=== PATIENT | male | born 1980 | race Caucasian/White ===

== ENCOUNTER 2022-02-24 21:30 | Emergency (ER) | payer MEDICARE, MEDICAID, SELFPAY ==
--- NOTE | 2022-02-24 21:38 | ECG_ITS ---
Test Reason : overdose Blood Pressure : / mmHG Vent. Rate : 085 BPM Atrial Rate : 085 BPM P-R Int : 164 ms QRS Dur : 086 ms QT Int : 370 ms P-R-T Axes : 078 064 065 degrees QTc Int : 440 ms Normal sinus rhythm with sinus arrhythmia Normal ECG No previous ECGs available Referred By: Mikayla Grimes Electronically Signed By:LARRY SEGOVIA
[2022-02-24 21:43] VITALS: BP 132/92; PULSE 105; RESP 16; TEMP 36.8; O2SAT 95; BMI 28.5
[2022-02-24] MEDS: Activated charcoaL 50 GM/240 ML ORAL.SUSP PO (22:05)
[2022-02-24] MEDS: 0.9 % Sodium Chloride 1,000 ML 999 ML IVCONT (22:05)
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
[2022-02-24 22:17] LABS: Ammonia 31 umol/L (13-55)
[2022-02-24 22:20] LABS: Lactic Acid 1.8 mmol/L (0.5-2.0)
[2022-02-24 22:27] LABS: Alanine Aminotransferase 28 U/L (0-40); Albumin Level 4.7 g/dL (3.5-5.0); Alkaline Phosphatase 57 U/L (39-117); Anion Gap 17 (12-20); Aspartate Amino Transferase 24 U/L (5-37); Bilirubin Direct 0.2 mg/dL (0.0-0.5); Bilirubin Total 0.4 mg/dL (0.0-1.0); Blood Urea Nitrogen 14 mg/dL (9-16); Calcium 9.5 mg/dL (8.4-10.2); Carbon Dioxide 21 mmol/L (22-29); Chloride 108 mmol/L (96-108); Creatinine Clr Calc Pharmacy 118.1; Estimated Glomerular Filt Rate > 60; Ethanol 213 mg/dL; Glucose Random 97 mg/dL (60-115); Magnesium 1.9 mg/dL (1.6-2.6); Partial Thromboplastin Time 27.1 SEC (26.0-36.4); Potassium 3.7 mmol/L (3.3-5.1); Sodium 142 mmol/L (135-145); Total Protein 7.6 g/dL (6.5-8.0)
[2022-02-24 22:35] LABS: Basophils Percent Auto 0.5 % (0-2); Eosinophils Absolute Auto 0.2 X10*3/uL (0.0-0.4); Eosinophils Percent Auto 2.3 % (0-4); Hematocrit 43.4 % (42.0-52.0); Hemoglobin 15.6 g/dl (14.0-18.0); Imm Gran Abs Auto 0.04 X10*3/uL (0.00-0.03); Imm Gran Pct Auto 0.5 % (0.0-0.4); Lymphocytes Percent Auto 26.6 % (20-40); Mean Corpuscular HGB Conc 35.9 g/dl (31.0-36.0); Mean Corpuscular Hemoglobin 33.8 pg (27.0-33.0); Mean Corpuscular Volume 94.1 fL (80.0-98.0); Mean Platelet Volume 10.2 fL (9.4-12.4); Monocytes Absolute Auto 0.7 X10*3/uL (0.1-1.2); Monocytes Percent Auto 9.4 % (2-11); Neutrophils Absolute Auto 4.6 x10*3/uL (2.0-8.3); Neutrophils Percent Auto 60.7 % (45-73); Platelet Count 149 X10*3/uL (160-400); Red Blood Count 4.61 X10*6/uL (4.60-5.80); Red Cell Distribution Width 12.8 % (11.0-16.0); White Blood Count 7.5 X10*3/uL (4.8-10.8)
[2022-02-24 22:36] LABS: MANUAL DIFF FLAG NO
[2022-02-24 22:44] LABS: COVID-19 Test Negative (Negative); IDNOW Serial# 16C4AD1C
[2022-02-24 22:58] LABS: Troponin-I High Sensitivity < 3.5 ng/L (<3.5-35.0)
[2022-02-25 00:31] LABS: Acetaminophen LAB < 1 mcg/mL (<30); Salicylate < 5.0 mg/dL (15-30)
[2022-02-25 01:43] LABS: Anion Gap 17 (12-20); Blood Urea Nitrogen 14 mg/dL (9-16); Calcium 9.5 mg/dL (8.4-10.2); Carbon Dioxide 25 mmol/L (22-29); Chloride 107 mmol/L (96-108); Creatinine Clr Calc Pharmacy 114.4; Estimated Glomerular Filt Rate > 60; Glucose Random 96 mg/dL (60-115); Potassium 3.9 mmol/L (3.3-5.1); Sodium 145 mmol/L (135-145)
[2022-02-25 01:45] LABS: Acetaminophen LAB < 1 mcg/mL (<30)
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
--- NOTE | 2022-02-25 02:45 | ECG_ITS ---
Test Reason : REPEAT Blood Pressure : / mmHG Vent. Rate : 072 BPM Atrial Rate : 072 BPM P-R Int : 182 ms QRS Dur : 088 ms QT Int : 396 ms P-R-T Axes : 042 012 045 degrees QTc Int : 433 ms Normal sinus rhythm Normal ECG When compared with ECG of 24-FEB-2022 22:47, No significant change was found Referred By: Mikayla Grimes Electronically Signed By:LARRY SEGOVIA
--- NOTE | 2022-02-25 04:02 | PC.NURSE ---
Poison Control called back and states pt should have a repeat EKG and then could likely be medically cleared. Ad DIALLO aware.
--- NOTE | 2022-02-25 04:19 | PC.NURSE ---
Repeat EKG 04:02.
[2022-02-25 04:41] VITALS: BP 140/69; PULSE 98; O2SAT 99
== END 2022-02-25 04:42 ==
PROVIDERS: Physician Assistant; Emergency Provider Emergency Medicine
DX: R45.851 Suicidal ideations (principal); T43.222A Poisoning by selective serotonin reuptake inhibitors, intentional self-harm, initial encounter; T42.8X2A Poisoning by antiparkinsonism drugs and other central muscle-tone depressants, intentional self-harm, initial encounter; T39.312A Poisoning by propionic acid derivatives, intentional self-harm, initial encounter; Y92.9 Unspecified place or not applicable; Z20.822 Contact with and (suspected) exposure to COVID-19; Z79.899 Other long term (current) drug therapy
CPT/HCPCS: 36415; 80048; 80076; 80143; 80179; 82077; 82140; 83605; 83735; 84484; 85025; 85610; 85730; 87635; 93005; 96360; 96361; 99285

== ENCOUNTER 2022-07-30 03:41 | Emergency (ER) | payer MEDICARE, MEDICAID, SELFPAY ==
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
[2022-07-30 04:09] VITALS: BP 134/82; PULSE 100; RESP 18; TEMP 36.6; O2SAT 96; BMI 25.9
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
[2022-07-30] MEDS: Ibuprofen 600 MG TABLET PO (07:22)
[2022-07-30] MEDS: Acetaminophen 325 MG TABLET 975 MG PO (07:22)
[2022-07-30] MEDS: Diphth,Pertus(ACell),Tet Adult 0.5 ML SYRINGE IM (07:22)
[2022-07-30] MEDS: Bacitracin Oint 14 GM TUBE 1 APPL TOPICAL (07:23)
--- NOTE | 2022-07-30 07:33 | PC.NURSE ---
r hand washed and antibiotic ointment placed and bandaged
== END 2022-07-30 07:32 ==
PROVIDERS: Emergency Provider Emergency Medicine Emergency Medical Services
DX: S60.221A Contusion of right hand, initial encounter (principal); S60.511A Abrasion of right hand, initial encounter; S61.411A Laceration without foreign body of right hand, initial encounter; X58.XXXA Exposure to other specified factors, initial encounter; Y93.9 Activity, unspecified; Y92.009 Unspecified place in unspecified non-institutional (private) residence as the place of occurrence of the external cause; Y99.9 Unspecified external cause status; Z23 Encounter for immunization
CPT/HCPCS: 73130; 90471; 90715; 99283